=== PATIENT | female | born 1950 | race Caucasian/White ===

== ENCOUNTER 2018-02-06 16:35 | Emergency (ER) | payer OTHER ==
[~2018-02-06] VITALS: Ht 175.3 cm; Wt 60.8 kg
[~2018-02-06 16:35] MED LIST: CLOP75TA15 PO; ESCI10TA55 PO; IBUP-1955 PO; LISI10TA5 PO; TRAZ-182 PO; [UNRECOGNIZED DRUG - CODE] PO
--- NOTE | 2018-02-06 16:57 | NUR ---
PT UNABLE TO REMEMBER MEDS
[2018-02-06 16:59] LABS: BASOPHILS % (AUTO) 0.6 % (0.0-2.0); EOSINOPHILS % (AUTO) 0.6 % (0.0-7.0); HEMATOCRIT 34.1 % (31.2-41.9); HEMOGLOBIN 11.5 g/dL (10.9-14.3); LYMPHOCYTES # (AUTO) 1.4 K/uL (20.0-40.0); LYMPHOCYTES % (AUTO) 19.6 % (20.5-51.5); MEAN CORPUSCULAR HEMOGLOBIN 32.2 uug (24.7-32.8); MEAN CORPUSCULAR HGB CONC 34 g/dL (32.3-35.6); MEAN CORPUSCULAR VOLUME 95.6 fL (75.5-95.3); MONOCYTES # (AUTO) 0.6 K/uL (2.0-10.0); NEUTROPHILS # (AUTO) 4.9 K/uL (1.8-8.9); NEUTROPHILS % (AUTO) 70.2 % (38.5-71.5); PLATELET COUNT (AUTO) 250 K/uL (179-408); RED BLOOD CELL COUNT(AUTO) 3.57 MIL/uL (3.63-4.92); WHITE BLOOD COUNT (AUTO) 6.9 K/uL (3.8-11.8)
[2018-02-06 17:07] LABS: CREATININE 1.6 mg/dL (0.6-1.3); POTASSIUM 5.1 mmol/L (3.5-5.1)
[2018-02-06 17:12] LABS: BILIRUBIN,DIRECT 0.3 mg/dL (0.0-0.2); BILIRUBIN,TOTAL 0.7 mg/dL (0.2-1.0); TOTAL PROTEIN, SERUM 5.7 g/dL (6.4-8.2)
[2018-02-06] MEDS ORDERED: ACETAMINOPHEN ES 500 MG TABLET PO ONE (18:15)
--- NOTE | 2018-02-06 18:15 | NUR ---
PT AMBULATED TO BATHROOM WITH ASSISSTANCE
--- NOTE | 2018-02-06 18:20 | NUR ---
ELIZABETH ALBRIGHT TALKING TO DR. BURDICK
[2018-02-06] MEDS ORDERED: ACETAMINOPHEN ES 500 MG TABLET ONE (18:29)
[2018-02-06] MEDS ORDERED: ONDANSETRON IV *ER 4 MG/2 ML VIAL IV ONE (18:30)
--- NOTE | 2018-02-06 18:35 | NUR ---
[facility] CALLED BACK. PT IS GOING TO [facility], ACCEPTING MD FRANKLIN VENTURA, REPORT NUMBER [phone]
--- NOTE | 2018-02-06 18:43 | NUR ---
REPORT GIVEN TO ELIZABETH GRANDA
[2018-02-06] MEDS ORDERED: ONDANSETRON ODT 4 MG TAB.RAPDIS SL ONE (18:45)
[2018-02-06] MEDS ORDERED: ONDANSETRON ODT 4 MG TAB.RAPDIS ONE (18:50)
--- NOTE | 2018-02-06 19:24 | NUR ---
HANDS OFF REPORT GIVEN TO KALEE CABRERA
--- NOTE | 2018-02-06 19:50 | NUR ---
REPORT GIVEN TO ROSELIA CARUSO W/ PRN #[id number]
--- NOTE | 2018-02-06 20:30 | NUR ---
PT IN ROUTE TO [facility] ER WITH EMT SHADY IN PRN #[id number]
== END 2018-02-06 20:30 | disposition short-term general hospital (02) ==
LOC: ER 16:35
DX: R55 Syncope and collapse (principal); I10 Essential (primary) hypertension; Z90.49 Acquired absence of other specified parts of digestive tract
CPT/HCPCS: 36415; 70450; 71045; 80048; 80076; 84484; 85025; 85730; 93005; 99285; A4663; A9150; Q0162; 70030-TC